=== PATIENT | male | born 1970 | race Caucasian/White ===

== ENCOUNTER → 2020-12-11 | Day surgery (SDC) | payer BC ==
[~2020-12-11] MED LIST: Midazolam 1 MG/ML 2 ML SDV ONE; Propofol 200 MG/20 ML SDV ONE; Sodium Chloride 0.9% 1,000 ML IV SCH; fentaNYL 100 MCG/2 ML SDV ONE
--- NOTE | 2020-12-11 10:26 | OR ---
DATE OF PROCEDURE: 12/11/2020 SURGEON: Luis Bear MD PROCEDURE: Colonoscopy. FINDINGS: 1. Sigmoid colon polyp, approximately 8 mm, completely removed using hot snare wire device. 2. Sigmoid colon polyp #2, approximately 1 cm, completely removed using hot snare wire device. COMPLICATIONS: None. SALES REPRESENTATIVE UNIFORMS: None. ANESTHESIA: MAC. PREOPERATIVE DIAGNOSIS: Screening colonoscopy. POSTOPERATIVE DIAGNOSIS: Screening colonoscopy. RISKS: Risks, benefits, alternatives, and limitations including, but not limited to infection, bleeding, perforation, false positives and false negatives were all explained to the patient who wished to proceed. PROCEDURE IN DETAIL: The patient was placed in left lateral decubitus position. Digital rectal exam was performed without abnormality. Scope was introduced and advanced atraumatically to the ileocecal valve. A photo was taken. The scope was brought back to the ascending, transverse, descending colon, and retroflexed. No evidence of old or new blood. The aforementioned polyps were identified and completely removed. The prep was described as marginal with approximately 85% of the luminal surface could be seen due to retained solid and liquid stool. Suction irrigation techniques were used to remove the maximum amount of remnants. There was no evidence of colitis or any other abnormality aside from the polyps. On retroflexion there was no abnormality. Greater than 8 minutes was spent removing the scope. The patient tolerated the procedure well. Luis Bear MD /[id number]
== END | disposition home or self-care (01) ==
LOC: JP.SDS 06:14
PROVIDERS: ATTEND Surgery
DX: Z12.11 Encounter for screening for malignant neoplasm of colon (principal); D12.5 Benign neoplasm of sigmoid colon; K21.9 Gastro-esophageal reflux disease without esophagitis; E11.9 Type 2 diabetes mellitus without complications; E66.9 Obesity, unspecified; G47.33 Obstructive sleep apnea (adult) (pediatric); Z79.899 Other long term (current) drug therapy; Z68.36 Body mass index [BMI] 36.0-36.9, adult
CPT/HCPCS: 88305; J2250; J2704; J3010; J7030

== ENCOUNTER 2022-07-18 05:10 | Inpatient (IN) | payer BC ==
[2022-07-18] MEDS ORDERED: Scopolamine 1.5 MG Transdermal Patch TOP ONE (05:19)
[2022-07-18] MEDS ORDERED: Celecoxib 200 MG Cap PO ONE (05:20)
[2022-07-18] MEDS ORDERED: Acetaminophen 500 MG Tab PO ONE (05:20)
[2022-07-18] MEDS ORDERED: cefOXitin 2 GM in Sodium Chloride 0.9% 50 ML IV ONE ×2 (05:21→07:30)
[2022-07-18] MEDS ORDERED: Dextrose 5%-Lactated Ringers 1,000 ML IV SCH (05:30)
[2022-07-18 06:09] LABS: HEMOGLOBIN A1C 7.5 % (4.5-6.2)
[2022-07-18] MEDS ORDERED: cefOXitin 2 GM Vial ONE (06:52)
[2022-07-18] MEDS ORDERED: Glycopyrrolate 0.2 MG/ML 5 ML MDV ONE (07:13)
[2022-07-18] MEDS ORDERED: Neostigmine Methylsulfate 1 MG/ML 5 ML Syringe ONE (07:13)
[2022-07-18] MEDS ORDERED: Propofol 200 MG/20 ML SDV ONE (07:13)
[2022-07-18] MEDS ORDERED: fentaNYL 250 MCG/5 ML SDV ONE ×2 (07:13→07:41)
[2022-07-18] MEDS ORDERED: Dexamethasone 4 MG/ML SDV ONE (07:13)
[2022-07-18] MEDS ORDERED: Rocuronium 50 MG/5 ML Vial ONE ×2 (07:13→08:01)
[2022-07-18] MEDS ORDERED: Ondansetron 4 MG/2 ML SDV ONE (07:13)
[2022-07-18] MEDS ORDERED: Succinylcholine 200 MG/10 ML MDV ONE (07:13)
[2022-07-18] MEDS ORDERED: Ketamine 500 MG/5 ML MDV IV SCH (07:30)
[2022-07-18] MEDS ORDERED: Ketamine 18 MG in Sodium Chloride 0.9% 19.82 ML IV SCH (07:30)
[2022-07-18] MEDS ORDERED: Labetalol 20 MG/4 ML Syringe ONE (08:28)
[2022-07-18] MEDS ORDERED: Glucagon,Human Recombinant 1 MG Vial ONE (08:32)
[2022-07-18] MEDS ORDERED: Non-Formulary Medication 1 Each IV ONE (11:37)
[2022-07-18] MEDS ORDERED: Lactated Ringers 1,000 ML IV SCH (12:30)
[2022-07-18] MEDS ORDERED: traMADol 50 MG Tab PO PRN (13:00)
[2022-07-18] MEDS ORDERED: Acetaminophen 500 MG Tab PO PRN (13:00)
[2022-07-18] MEDS ORDERED: 50% Dextrose in Water 50 ML Syringe IVPUSH PRN (13:00)
[2022-07-18] MEDS ORDERED: Glucagon,Human Recombinant 1 MG Vial IM PRN (13:00)
[2022-07-18] MEDS ORDERED: Ondansetron 4 MG/2 ML SDV IVPUSH PRN (13:00)
[2022-07-18] MEDS ORDERED: Labetalol 20 MG/4 ML Syringe IVPUSH PRN (13:00)
[2022-07-18] MEDS: Acetaminophen 500 MG Tab PO SCH ×2 (14:30→21:36)
[2022-07-18] MEDS: Pantoprazole 40 MG Vial IVPUSH SCH (14:32)
[2022-07-18] MEDS: cefOXitin 2 GM in Sodium Chloride 0.9% 50 ML IV SCH ×2 (14:32→20:10)
[2022-07-18] MEDS: hydrOXYzine HCL 100 MG/2 ML SDV IM PRN ×2 (15:12→23:31)
[2022-07-18] MEDS: Heparin Sodium 5,000 Units/ML Vial SUBCUT SCH ×2 (15:18→23:40)
[2022-07-18] MEDS ORDERED: MVI, Adult with Vitamin K 10 ML, Thiamine 200 MG, Zinc/Copper/Manganese/Selenium 1 ML i... IV SCH ×4 (16:00)
[2022-07-18] MEDS: Insulin Lispro 100 Unit/ML 3 ML KwikPen SUBCUT SCH ×2 (16:52→21:37)
[2022-07-18] MEDS: atorvaSTATin 20 MG Tab PO SCH (21:15)
[2022-07-18] MEDS: Cyclobenzaprine 10 MG Tab PO PRN (21:36)
[2022-07-18] MEDS: Metoclopramide 10 MG/2 ML SDV IVPUSH PRN (23:35)
[2022-07-19] MEDS: cefOXitin 2 GM in Sodium Chloride 0.9% 50 ML IV SCH ×3 (01:52→15:10)
[2022-07-19] MEDS: oxyCODONE 5 MG Tab PO PRN ×2 (01:52→08:51)
[2022-07-19] MEDS ORDERED: Iopamidol 612 MG/ML 50 ML SDV PO STA (02:58)
[2022-07-19] MEDS: Insulin Lispro 100 Unit/ML 3 ML KwikPen SUBCUT SCH ×4 (03:55→21:17)
[2022-07-19] MEDS: Acetaminophen 500 MG Tab PO SCH ×3 (05:51→21:00)
[2022-07-19] MEDS: HYDROmorphone 0.5 MG/0.5 ML Syringe IVPUSH PRN ×2 (05:55→07:55)
[2022-07-19] MEDS: hydrOXYzine HCL 100 MG/2 ML SDV IM PRN (07:55)
[2022-07-19] MEDS: Losartan 50 MG Tab PO SCH (08:50)
[2022-07-19] MEDS: Aspirin 81 MG Tab.EC PO SCH (08:50)
[2022-07-19] MEDS: Heparin Sodium 5,000 Units/ML Vial SUBCUT SCH ×3 (08:50→21:00)
[2022-07-19] MEDS: Metoclopramide 10 MG/2 ML SDV IVPUSH PRN (08:51)
[2022-07-19] MEDS ORDERED: Celecoxib 200 MG Cap PO SCH (09:00)
[2022-07-19] MEDS: SCOPOLAMINE PATCH CHECK TOP SCH (10:28)
[2022-07-19] MEDS: Lactated Ringers 1,000 ML IV SCH ×2 (10:33→20:15)
[2022-07-19] MEDS: HYDROmorphone 1 MG/ML Syringe IV PRN ×2 (10:34→12:47)
[2022-07-19] MEDS ORDERED: Sodium Chloride 0.9% 10 ML Syringe FLUSH ONE (12:33)
[2022-07-19] MEDS ORDERED: Iopamidol 612 MG/ML 30 ML SDV PO ONE (12:33)
[2022-07-19] MEDS ORDERED: Iopamidol 612 MG/ML 100 ML Bottle IV SCH (12:45)
[2022-07-19] MEDS ORDERED: Sodium Chloride 0.9% 50 ML IV SCH (12:45)
[2022-07-19] MEDS ORDERED: Meropenem 500 MG in Sodium Chloride 0.9% 50 ML IV ONE (13:45)
[2022-07-19] MEDS ORDERED: Meropenem 500 MG SDV ONE ×4 (13:53→15:48)
[2022-07-19] MEDS ORDERED: Bupivacaine 0.5% 50 ML MDV ONE (13:53)
[2022-07-19] MEDS ORDERED: Lidocaine 1% with EPINEPHrine 1:100,000 50 ML MDV ONE (13:53)
[2022-07-19] MEDS ORDERED: Ketamine 500 MG/5 ML MDV IV SCH (14:00)
[2022-07-19] MEDS ORDERED: Ketamine 18 MG in Sodium Chloride 0.9% 19.82 ML IV SCH (14:00)
[2022-07-19] MEDS ORDERED: Glycopyrrolate 0.2 MG/ML 5 ML MDV ONE (14:05)
[2022-07-19] MEDS ORDERED: Rocuronium 50 MG/5 ML Vial ONE ×2 (14:05→15:50)
[2022-07-19] MEDS ORDERED: Succinylcholine 200 MG/10 ML MDV ONE (14:05)
[2022-07-19] MEDS ORDERED: fentaNYL 250 MCG/5 ML SDV ONE ×2 (14:05→15:12)
[2022-07-19] MEDS ORDERED: Neostigmine Methylsulfate 1 MG/ML 5 ML Syringe ONE (14:05)
[2022-07-19] MEDS ORDERED: Propofol 200 MG/20 ML SDV ONE (14:05)
[2022-07-19] MEDS ORDERED: Ondansetron 4 MG/2 ML SDV ONE (14:05)
[2022-07-19] MEDS ORDERED: Dexamethasone 4 MG/ML SDV ONE (14:05)
[2022-07-19] MEDS ORDERED: Metoclopramide 10 MG/2 ML SDV IVPUSH SCH (15:00)
[2022-07-19] MEDS ORDERED: Naloxone 0.4 MG/ML SDV IVPUSH PRN (15:08)
[2022-07-19] MEDS: Pantoprazole 40 MG Vial IVPUSH SCH (15:10)
[2022-07-19] MEDS ORDERED: Sodium Chloride 0.9% 10 ML ONE (15:12)
[2022-07-19] MEDS: HYDROmorphone/Normal Saline 6 MG/30 ML PCA Vial IV PRN (15:22)
[2022-07-19] MEDS ORDERED: Lactated Ringers 1,000 ML ONE (15:30)
[2022-07-19] MEDS ORDERED: Sodium Chloride 0.9% 100 ML ONE (15:47)
[2022-07-19] MEDS ORDERED: Linezolid 600 MG/300 ML Premix Bag IRR ONE (15:58)
[2022-07-19] MEDS ORDERED: MVI, Adult with Vitamin K 10 ML, Thiamine 200 MG, Zinc/Copper/Manganese/Selenium 1 ML i... IV SCH ×8 (16:00→20:00)
[2022-07-19] MEDS ORDERED: Naloxone 0.4 MG/ML SDV IV PRN (18:00)
[2022-07-19] MEDS ORDERED: Metoclopramide 10 MG/2 ML SDV IVPUSH PRN (18:23)
[2022-07-19] MEDS ORDERED: Albuterol/Ipratropium 3.0-0.5 MG/3 ML Neb Soln INH PRN ×2 (18:31→19:00)
[2022-07-19] MEDS: Meropenem 500 MG in Sodium Chloride 0.9% 50 ML IV SCH (20:34)
[2022-07-19] MEDS: atorvaSTATin 20 MG Tab PO SCH (20:56)
[2022-07-20] MEDS: Meropenem 500 MG in Sodium Chloride 0.9% 50 ML IV SCH ×4 (02:25→20:11)
[2022-07-20] MEDS: Insulin Lispro 100 Unit/ML 3 ML KwikPen SUBCUT SCH ×4 (03:56→22:58)
[2022-07-20 04:50] LABS: ESTIMATED GFR 45 mL/min (>60)
[2022-07-20] MEDS: Acetaminophen 500 MG Tab PO SCH ×3 (05:45→21:21)
[2022-07-20] MEDS: Heparin Sodium 5,000 Units/ML Vial SUBCUT SCH ×3 (05:46→21:21)
[2022-07-20] MEDS: SCOPOLAMINE PATCH CHECK TOP SCH (08:29)
[2022-07-20] MEDS: Celecoxib 200 MG Cap PO SCH ×2 (08:46→21:21)
[2022-07-20] MEDS: Losartan 50 MG Tab PO SCH (08:46)
[2022-07-20] MEDS: Aspirin 81 MG Tab.EC PO SCH (08:46)
[2022-07-20] MEDS ORDERED: Cyanocobalamin (Vitamin B12) 1,000 MCG/ML SDV IM ONE (09:00)
[2022-07-20] MEDS ORDERED: TRULICITY 3 MG SUBCUT ONE (09:00)
[2022-07-20] MEDS: Lactated Ringers 1,000 ML IV SCH (10:01)
[2022-07-20] MEDS: Magnesium Sulfate/Water 2 GM in Premix Bag 1 BAG IV SCH ×3 (10:02→21:20)
[2022-07-20] MEDS: Pantoprazole 40 MG Vial IVPUSH SCH (14:03)
[2022-07-20] MEDS: HYDROmorphone/Normal Saline 6 MG/30 ML PCA Vial IV PRN ×2 (14:38→22:56)
[2022-07-20] MEDS ORDERED: Lactated Ringers 1,000 ML IV SCH (18:00)
[2022-07-20] MEDS ORDERED: MVI, Adult with Vitamin K 10 ML, Thiamine 200 MG, Zinc/Copper/Manganese/Selenium 1 ML i... IV SCH ×4 (18:00)
[2022-07-20] MEDS: atorvaSTATin 20 MG Tab PO SCH (21:22)
[2022-07-20] MEDS ORDERED: Furosemide 20 MG/2 ML VIAL IVPUSH ONE (21:56)
[2022-07-20] MEDS: hydrOXYzine HCL 100 MG/2 ML SDV IM PRN (23:04)
[2022-07-21] MEDS: Meropenem 500 MG in Sodium Chloride 0.9% 50 ML IV SCH ×4 (02:30→19:59)
[2022-07-21] MEDS ORDERED: Iopamidol 612 MG/ML 50 ML SDV PO STA (03:29)
[2022-07-21] MEDS: Insulin Lispro 100 Unit/ML 3 ML KwikPen SUBCUT SCH ×4 (04:28→22:22)
[2022-07-21] MEDS: Magnesium Sulfate/Water 2 GM in Premix Bag 1 BAG IV SCH ×4 (04:29→22:08)
[2022-07-21 05:07] LABS: ESTIMATED GFR 73 mL/min (>60)
[2022-07-21] MEDS: HYDROmorphone/Normal Saline 6 MG/30 ML PCA Vial IV PRN ×2 (05:28→17:32)
[2022-07-21] MEDS: Heparin Sodium 5,000 Units/ML Vial SUBCUT SCH ×3 (06:25→22:08)
[2022-07-21] MEDS: Acetaminophen 500 MG Tab PO SCH ×3 (06:25→22:06)
[2022-07-21] MEDS: SCOPOLAMINE PATCH CHECK TOP SCH (08:03)
[2022-07-21] MEDS: Aspirin 81 MG Tab.EC PO SCH (08:33)
[2022-07-21] MEDS: Losartan 50 MG Tab PO SCH (08:33)
[2022-07-21] MEDS: Celecoxib 200 MG Cap PO SCH ×2 (08:33→22:07)
[2022-07-21] MEDS ORDERED: Cyanocobalamin (Vitamin B12) 1,000 MCG/ML SDV IM ONE (09:00)
[2022-07-21] MEDS: Bisacodyl 5 MG Tab PO SCH ×2 (09:04→22:06)
[2022-07-21] MEDS: Docusate Sodium 100 MG Cap PO SCH ×2 (09:04→22:07)
[2022-07-21] MEDS: Lactated Ringers 1,000 ML IV SCH (11:45)
[2022-07-21] MEDS ORDERED: Furosemide 20 MG/2 ML VIAL IVPUSH ONE (12:00)
[2022-07-21] MEDS: Pantoprazole 40 MG Vial IVPUSH SCH (14:12)
[2022-07-21] MEDS: atorvaSTATin 20 MG Tab PO SCH (22:07)
[2022-07-22] MEDS: Meropenem 500 MG in Sodium Chloride 0.9% 50 ML IV SCH ×4 (02:38→19:20)
[2022-07-22] MEDS: HYDROmorphone/Normal Saline 6 MG/30 ML PCA Vial IV PRN ×3 (02:50→20:56)
[2022-07-22] MEDS: Magnesium Sulfate/Water 2 GM in Premix Bag 1 BAG IV SCH ×4 (05:05→21:00)
[2022-07-22] MEDS: Insulin Lispro 100 Unit/ML 3 ML KwikPen SUBCUT SCH ×4 (05:06→21:18)
[2022-07-22] MEDS: Heparin Sodium 5,000 Units/ML Vial SUBCUT SCH ×3 (05:16→21:01)
[2022-07-22] MEDS: Acetaminophen 500 MG Tab PO SCH ×3 (05:17→21:00)
[2022-07-22 05:26] LABS: ESTIMATED GFR 91 mL/min (>60)
[2022-07-22] MEDS: Aspirin 81 MG Tab.EC PO SCH (08:42)
[2022-07-22] MEDS: Losartan 50 MG Tab PO SCH (08:42)
[2022-07-22] MEDS: Bisacodyl 5 MG Tab PO SCH ×2 (08:42→20:29)
[2022-07-22] MEDS: Celecoxib 200 MG Cap PO SCH ×2 (08:42→20:28)
[2022-07-22] MEDS: Docusate Sodium 100 MG Cap PO SCH ×2 (08:42→20:28)
[2022-07-22] MEDS: Lactated Ringers 1,000 ML IV SCH ×2 (10:37→23:14)
[2022-07-22] MEDS: Pantoprazole 40 MG Vial IVPUSH SCH (14:24)
[2022-07-22] MEDS: atorvaSTATin 20 MG Tab PO SCH (20:28)
[2022-07-23] MEDS: Meropenem 500 MG in Sodium Chloride 0.9% 50 ML IV SCH ×4 (01:23→19:30)
[2022-07-23] MEDS: Magnesium Sulfate/Water 2 GM in Premix Bag 1 BAG IV SCH (03:53)
[2022-07-23] MEDS: Insulin Lispro 100 Unit/ML 3 ML KwikPen SUBCUT SCH ×4 (04:12→23:33)
[2022-07-23] MEDS: HYDROmorphone/Normal Saline 6 MG/30 ML PCA Vial IV PRN ×3 (04:39→17:49)
[2022-07-23 05:10] LABS: ESTIMATED GFR 103 mL/min (>60)
[2022-07-23] MEDS: Acetaminophen 500 MG Tab PO SCH ×3 (05:32→21:00)
[2022-07-23] MEDS: Heparin Sodium 5,000 Units/ML Vial SUBCUT SCH ×3 (05:33→21:00)
[2022-07-23] MEDS ORDERED: Bisacodyl 10 MG Supp RECTAL PRN (07:51)
[2022-07-23] MEDS: Celecoxib 200 MG Cap PO SCH ×2 (09:34→20:57)
[2022-07-23] MEDS: Docusate Sodium 100 MG Cap PO SCH ×2 (09:35→20:57)
[2022-07-23] MEDS: Losartan 50 MG Tab PO SCH (09:36)
[2022-07-23] MEDS: Bisacodyl 5 MG Tab PO SCH ×2 (09:38→20:57)
[2022-07-23] MEDS: Aspirin 81 MG Tab.EC PO SCH (09:39)
[2022-07-23] MEDS: Albumin Human 25 GM in Premix Bag 1 BAG IV SCH (09:43)
[2022-07-23] MEDS: Lactated Ringers 1,000 ML IV SCH (11:36)
[2022-07-23] MEDS: Pantoprazole 40 MG Vial IVPUSH SCH (14:07)
[2022-07-23] MEDS: atorvaSTATin 20 MG Tab PO SCH (20:57)
[2022-07-24] MEDS: Lactated Ringers 1,000 ML IV SCH ×2 (01:06→16:45)
[2022-07-24] MEDS: HYDROmorphone/Normal Saline 6 MG/30 ML PCA Vial IV PRN ×3 (01:06→21:11)
[2022-07-24] MEDS: Meropenem 500 MG in Sodium Chloride 0.9% 50 ML IV SCH ×4 (01:35→19:30)
[2022-07-24 04:51] LABS: ESTIMATED GFR 91 mL/min (>60)
[2022-07-24] MEDS: Insulin Lispro 100 Unit/ML 3 ML KwikPen SUBCUT SCH ×4 (05:03→22:49)
[2022-07-24] MEDS: Acetaminophen 500 MG Tab PO SCH ×3 (05:34→21:23)
[2022-07-24] MEDS: Heparin Sodium 5,000 Units/ML Vial SUBCUT SCH ×3 (05:34→21:22)
[2022-07-24] MEDS ORDERED: Sodium Phosphate,Monobasic/Sodium Phosphate,Dibasic Enema 133 ML Bottle RECTAL ONE (06:58)
[2022-07-24] MEDS ORDERED: Bisacodyl 10 MG Supp RECTAL SCH (07:00)
[2022-07-24] MEDS: Losartan 50 MG Tab PO SCH (08:14)
[2022-07-24] MEDS: Bisacodyl 5 MG Tab PO SCH ×2 (08:14→21:18)
[2022-07-24] MEDS: Aspirin 81 MG Tab.EC PO SCH (08:14)
[2022-07-24] MEDS: Celecoxib 200 MG Cap PO SCH ×2 (08:14→21:22)
[2022-07-24] MEDS: Docusate Sodium 100 MG Cap PO SCH ×2 (08:14→21:18)
[2022-07-24] MEDS: Albumin Human 25 GM in Premix Bag 1 BAG IV SCH (09:57)
[2022-07-24] MEDS: Bisacodyl 10 MG Supp RECTAL SCH ×2 (13:24→21:21)
[2022-07-24] MEDS: Pantoprazole 40 MG Vial IVPUSH SCH (13:25)
[2022-07-24] MEDS: atorvaSTATin 20 MG Tab PO SCH (21:23)
[2022-07-25] MEDS: Meropenem 500 MG in Sodium Chloride 0.9% 50 ML IV SCH ×4 (01:50→20:14)
[2022-07-25] MEDS: Insulin Lispro 100 Unit/ML 3 ML KwikPen SUBCUT SCH ×4 (04:02→21:28)
[2022-07-25 05:08] LABS: ESTIMATED GFR 107 mL/min (>60)
[2022-07-25] MEDS: Acetaminophen 500 MG Tab PO SCH ×3 (05:27→21:28)
[2022-07-25] MEDS: Heparin Sodium 5,000 Units/ML Vial SUBCUT SCH ×3 (05:28→21:28)
[2022-07-25] MEDS: Lactated Ringers 1,000 ML IV SCH ×2 (05:34→16:19)
[2022-07-25] MEDS ORDERED: HYDROmorphone 2 MG Tab PO PRN (07:30)
[2022-07-25] MEDS ORDERED: hydrOXYzine HCl 25 MG Tab PO PRN (07:34)
[2022-07-25] MEDS: Bisacodyl 5 MG Tab PO SCH ×2 (09:01→20:14)
[2022-07-25] MEDS: Aspirin 81 MG Tab.EC PO SCH (09:01)
[2022-07-25] MEDS: Docusate Sodium 100 MG Cap PO SCH ×2 (09:01→20:14)
[2022-07-25] MEDS: Celecoxib 200 MG Cap PO SCH ×2 (09:01→20:14)
[2022-07-25] MEDS: Losartan 50 MG Tab PO SCH (09:01)
[2022-07-25] MEDS: Pantoprazole 40 MG Tab.CR PO SCH (09:03)
[2022-07-25] MEDS: Albumin Human 25 GM in Premix Bag 1 BAG IV SCH (09:04)
[2022-07-25] MEDS: Cyclobenzaprine 10 MG Tab PO PRN (12:46)
[2022-07-25] MEDS: atorvaSTATin 20 MG Tab PO SCH (20:14)
[2022-07-26] MEDS: Meropenem 500 MG in Sodium Chloride 0.9% 50 ML IV SCH ×4 (02:23→20:27)
[2022-07-26] MEDS: Insulin Lispro 100 Unit/ML 3 ML KwikPen SUBCUT SCH ×4 (04:01→22:56)
[2022-07-26 05:02] LABS: ESTIMATED GFR 107 mL/min (>60)
[2022-07-26] MEDS: Lactated Ringers 1,000 ML IV SCH (05:39)
[2022-07-26] MEDS: Heparin Sodium 5,000 Units/ML Vial SUBCUT SCH ×3 (05:39→22:51)
[2022-07-26] MEDS: Acetaminophen 500 MG Tab PO SCH ×3 (05:40→22:51)
[2022-07-26] MEDS ORDERED: Temazepam 15 MG Cap PO PRN (07:29)
[2022-07-26] MEDS ORDERED: Lactated Ringers 1,000 ML IV SCH (07:30)
[2022-07-26] MEDS ORDERED: Potassium Chloride 20 MEQ Tab.ER PO ONE (08:00)
[2022-07-26] MEDS: Pantoprazole 40 MG Tab.CR PO SCH (08:43)
[2022-07-26] MEDS: Furosemide 20 MG/2 ML VIAL IVPUSH SCH ×2 (08:47→15:43)
[2022-07-26] MEDS: Celecoxib 200 MG Cap PO SCH ×2 (08:51→20:27)
[2022-07-26] MEDS: Docusate Sodium 100 MG Cap PO SCH ×2 (08:51→20:26)
[2022-07-26] MEDS: Losartan 50 MG Tab PO SCH (08:52)
[2022-07-26] MEDS: Bisacodyl 5 MG Tab PO SCH ×2 (08:52→20:26)
[2022-07-26] MEDS: Aspirin 81 MG Tab.EC PO SCH (08:53)
[2022-07-26] MEDS: atorvaSTATin 20 MG Tab PO SCH (20:26)
[2022-07-26] MEDS: diphenhydrAMINE 50 MG/ML SDV IVPUSH PRN (22:52)
[2022-07-26] MEDS: Hydrocortisone 1% Crm 30 GM Tube TOP PRN (23:03)
[2022-07-27] MEDS: Meropenem 500 MG in Sodium Chloride 0.9% 50 ML IV SCH ×4 (01:58→19:17)
[2022-07-27] MEDS: Insulin Lispro 100 Unit/ML 3 ML KwikPen SUBCUT SCH ×4 (04:32→21:11)
[2022-07-27 05:06] LABS: ESTIMATED GFR 107 mL/min (>60)
[2022-07-27] MEDS: Acetaminophen 500 MG Tab PO SCH ×3 (05:56→21:11)
[2022-07-27] MEDS: Heparin Sodium 5,000 Units/ML Vial SUBCUT SCH ×3 (05:56→21:00)
[2022-07-27] MEDS: Celecoxib 200 MG Cap PO SCH ×2 (08:39→20:59)
[2022-07-27] MEDS: Aspirin 81 MG Tab.EC PO SCH (08:40)
[2022-07-27] MEDS: Pantoprazole 40 MG Tab.CR PO SCH (08:40)
[2022-07-27] MEDS: Losartan 50 MG Tab PO SCH (08:40)
[2022-07-27] MEDS: Docusate Sodium 100 MG Cap PO SCH ×2 (08:42→20:58)
[2022-07-27] MEDS: Bisacodyl 5 MG Tab PO SCH ×2 (08:42→20:58)
[2022-07-27] MEDS ORDERED: Furosemide 20 MG/2 ML VIAL IVPUSH ONE (09:00)
[2022-07-27] MEDS ORDERED: Potassium Chloride 20 MEQ Tab.ER PO ONE (09:00)
[2022-07-27] MEDS: Hydrocortisone 1% Crm 30 GM Tube TOP PRN (20:59)
[2022-07-27] MEDS: atorvaSTATin 20 MG Tab PO SCH (20:59)
[2022-07-27] MEDS: diphenhydrAMINE 50 MG/ML SDV IVPUSH PRN (23:18)
[2022-07-28] MEDS: Meropenem 500 MG in Sodium Chloride 0.9% 50 ML IV SCH (01:20)
[2022-08-22 08:55] LABS: ESTIMATED GFR 103 mL/min (>60)
== END 2022-07-28 09:30 | disposition home or self-care (01) | DRG 403 ==
LOC: JP.SDS 05:10 → UNDOADMIN 05:10 → JP.MS 05:10 → EDSTATUS 07:15 → JP.ICU 11:37 → JP.MS 11:37 → JP.ZCENSUS 11:38 → JP.ICU 07-28 11:40 → JP.ZCENSUS 07-28 11:40
PROVIDERS: ADMIT Surgery; ATTEND Surgery
PROC: 0D194ZB Bypass Duodenum to Ileum, Percutaneous Endoscopic Approach (ICD-10-PCS; principal; 2022-07-18)
PROC: 0FB24ZX Excision of Left Lobe Liver, Percutaneous Endoscopic Approach, Diagnostic (ICD-10-PCS; 2022-07-18)
PROC: 0BQT4ZZ Repair Diaphragm, Percutaneous Endoscopic Approach (ICD-10-PCS; 2022-07-18)
PROC: 0D160ZA Bypass Stomach to Jejunum, Open Approach (ICD-10-PCS; 2022-07-19)
PROC: 0DB60ZZ Excision of Stomach, Open Approach (ICD-10-PCS; 2022-07-19)
PROC: 0W9G0ZZ Drainage of Peritoneal Cavity, Open Approach (ICD-10-PCS; 2022-07-19)
PROC: 0DB90ZZ Excision of Duodenum, Open Approach (ICD-10-PCS; 2022-07-19)
PROC: 0DBB0ZZ Excision of Ileum, Open Approach (ICD-10-PCS; 2022-07-19)
DX: E66.01 Morbid (severe) obesity due to excess calories (principal); R16.0 Hepatomegaly, not elsewhere classified; I10 Essential (primary) hypertension; G47.33 Obstructive sleep apnea (adult) (pediatric); K44.9 Diaphragmatic hernia without obstruction or gangrene; K56.600 Partial intestinal obstruction, unspecified as to cause; E78.00 Pure hypercholesterolemia, unspecified; Z79.84 Long term (current) use of oral hypoglycemic drugs; Z79.899 Other long term (current) drug therapy; Z68.38 Body mass index [BMI] 38.0-38.9, adult; T81.31XA Disruption of external operation (surgical) wound, not elsewhere classified, initial encounter
CPT/HCPCS: 36415; 74177; 74240; 74240-26; 80053; 82947; 83036; 83735; 83880; 84100; 84145; 85025; 85027; 86850; 86900; 86901; 87070; 87075; 87077; 87186; 87205; 88307; 88313; A9270-GY; C9113; J0171; J0330; J0694; J1100; J1170; J1200; J1610; J1644; J1815; J1815-GY; J1940; J2020; J2185; J2405; J2704; J2710; J2765; J2795; J3010; J3410; J3411; J3420; J3475; J3490; J7120; J7121; P9047; Q9967

== ENCOUNTER 2022-08-16 09:43 | Emergency (ER) | payer BC ==
[2022-08-16] MEDS: Tranexamic Acid 1,000 MG/10 ML Vial TOP ONE (10:40)
== END 2022-08-16 11:38 | disposition home or self-care (01) ==
LOC: JP.ED 09:43
DX: R04.0 Epistaxis (principal); E78.00 Pure hypercholesterolemia, unspecified; I10 Essential (primary) hypertension; E11.9 Type 2 diabetes mellitus without complications; E66.9 Obesity, unspecified; Z68.34 Body mass index [BMI] 34.0-34.9, adult; Z79.82 Long term (current) use of aspirin; Z79.899 Other long term (current) drug therapy
CPT/HCPCS: 99283

== ENCOUNTER 2024-05-10 07:47 | Day surgery (SDC) | payer BC ==
[2024-05-10] MEDS ORDERED: Propofol 200 MG/20 ML SDV ONE (08:13)
[2024-05-10] MEDS ORDERED: fentaNYL 50 MCG/ML SDV ONE (08:13)
[2024-05-10] MEDS ORDERED: Midazolam 1 MG/ML 2 ML SDV ONE (08:13)
[2024-05-10] MEDS: Sodium Chloride 0.9% 1,000 ML IV SCH (08:32)
== END 2024-05-10 11:15 | disposition home or self-care (01) ==
LOC: JP.SDS 07:47
PROVIDERS: ATTEND Surgery
DX: Z12.11 Encounter for screening for malignant neoplasm of colon (principal); Z86.010 Personal history of colon polyps
CPT/HCPCS: 00812-QZ; J2250; J2704; J3010; J7030

== ENCOUNTER 2024-05-11 09:08 | Day surgery (SDC) | payer BC ==
[2024-05-11] MEDS ORDERED: Propofol 200 MG/20 ML SDV ONE (09:46)
[2024-05-11] MEDS ORDERED: fentaNYL 100 MCG/2 ML SDV ONE (09:46)
[2024-05-11] MEDS ORDERED: Midazolam 1 MG/ML 2 ML SDV ONE (09:46)
[2024-05-11] MEDS: Sodium Chloride 0.9% 1,000 ML IV SCH (09:48)
== END 2024-05-11 12:35 | disposition home or self-care (01) ==
LOC: JP.SDS 09:08
PROVIDERS: ATTEND Surgery
DX: Z12.11 Encounter for screening for malignant neoplasm of colon (principal); G47.33 Obstructive sleep apnea (adult) (pediatric); I10 Essential (primary) hypertension; E11.9 Type 2 diabetes mellitus without complications
CPT/HCPCS: 00812-QZ; J2250; J2704; J3010; J7030